=== PATIENT | male | born 1990 | race African-American/Black ===

== ENCOUNTER 2017-09-11 10:44 | Emergency (ER) | payer SELFPAY ==
[~2017-09-11] VITALS: Ht 177.8 cm; Wt 116.0 kg
[2017-09-11 11:30] VITALS: BP 137/88
[2017-09-11] MEDS ORDERED: IBUPROFEN 600MG TABLET PO ONE (11:30)
== END 2017-09-11 15:49 | disposition left against medical advice (07) ==
LOC: ER 12:19
DX: M54.5 Low back pain (principal); M25.512 Pain in left shoulder; J45.909 Unspecified asthma, uncomplicated; F12.10 Cannabis abuse, uncomplicated; V49.3XXA Car occupant (driver) (passenger) injured in unspecified nontraffic accident, initial encounter; Y93.89 Activity, other specified; Y92.89 Other specified places as the place of occurrence of the external cause; Y99.8 Other external cause status
CPT/HCPCS: 99281; 99282

== ENCOUNTER 2017-11-12 07:02 | Emergency (ER) | payer SELFPAY ==
[~2017-11-12] VITALS: Ht 180.3 cm; Wt 104.0 kg
[2017-11-12] MEDS ORDERED: TETANUS, DIPHTHERIA, PERTUSSIS VAC/PF 0.5ML (>7YR OLD) IM ONE (07:30)
[2017-11-12] MEDS ORDERED: SODIUM CHLORIDE 0.9% 1,000 ML IV ONE (07:30)
[2017-11-12] MEDS ORDERED: LIDOCAINE HCL 1% 20ML VIAL (Pyxis) INJ INFIL ONE (07:30)
[2017-11-12] MEDS ORDERED: ONDANSETRON HCL 4MG/2ML VIAL IV ONE (07:30)
[2017-11-12] MEDS ORDERED: LIDOCAINE HCL/PF 1% 10 MG/ML 30ML VIAL ONE (08:03)
[2017-11-12] MEDS ORDERED: BACITRACIN ZINC OINT UDPKT TOP ONE (10:00)
[2017-11-12 10:16] VITALS: BP 148/70
== END 2017-11-12 10:16 | disposition home or self-care (01) ==
LOC: ER 08:01
DX: S06.0X0A Concussion without loss of consciousness, initial encounter (principal); S01.411A Laceration without foreign body of right cheek and temporomandibular area, initial encounter; F12.10 Cannabis abuse, uncomplicated; Y08.89XA Assault by other specified means, initial encounter; Y93.89 Activity, other specified; Y92.89 Other specified places as the place of occurrence of the external cause; Y99.8 Other external cause status
CPT/HCPCS: 12011; 70450; 70486; 72125; 90471; 90715; 96361; 96374; 99285; J2405; J3490; J7030; Z7610; 99284

== ENCOUNTER 2017-11-17 21:00 | Emergency (ER) | payer SELFPAY ==
[~2017-11-17] VITALS: Ht 177.8 cm; Wt 115.0 kg
[2017-11-18 00:20] VITALS: BP 144/91
== END 2017-11-18 00:20 | disposition home or self-care (01) ==
LOC: ER 21:00
DX: Z48.02 Encounter for removal of sutures (principal)
CPT/HCPCS: 99281; Z7610

== ENCOUNTER 2020-09-01 20:02 | Emergency (ER) | payer MEDICAID ==
[~2020-09-01] VITALS: Ht 177.8 cm; Wt 100.0 kg
[2020-09-01] MEDS ORDERED: ACETAMINOPHEN 325MG TABLET PO STA (21:07)
[2020-09-01] MEDS ORDERED: IBUPROFEN 600MG TABLET PO STA (21:07)
[2020-09-01 21:23] LABS: BASOPHILS % 0.9 % (0.0-2.0); HEMOGLOBIN. 13.5 g/dL (14.0-18.0); LYMPHOCYTES % 39.8 % (20.0-50.0); MEAN CORPUSCULAR HEMOGLOBIN 29.2 pg (28.0-32.0); MEAN CORPUSCULAR VOLUME 84.7 fL (80.0-94.0); MEAN PLATELET VOLUME 10.2 fl (7.4-10.4); MONOCYTES % 8.7 % (2.0-8.0); NEUTROPHILS % 46.6 % (40.0-76.0); PLATELET 178 x1000/uL (130-400); RED CELL DISTRIBUTION WIDTH 14.6 % (11.6-14.6)
[2020-09-01 21:25] LABS: CHLORIDE 105 mEq/L (98-107)
[2020-09-01] MEDS ORDERED: POTASSIUM CHLORIDE 20MEQ TABLET SR PO ONE (21:45)
[2020-09-01 22:24] VITALS: BP 144/73
== END 2020-09-01 22:25 | disposition home or self-care (01) ==
LOC: ER 20:02
DX: R07.89 Other chest pain (principal); F12.10 Cannabis abuse, uncomplicated; J45.909 Unspecified asthma, uncomplicated; Z98.890 Other specified postprocedural states
CPT/HCPCS: 36415; 71045; 80053; 84484; 85025; 93005; 99285; Z7610

== ENCOUNTER 2021-04-29 14:13 | Emergency (ER) | payer MEDICAID ==
[~2021-04-29] VITALS: Ht 177.8 cm; Wt 113.0 kg
[2021-04-29 14:30] VITALS: BP 130/94
[2021-04-30] MEDS ORDERED: TOPUD MT (17:58)
[2021-04-30] MEDS ORDERED: IBUP-2028 MT (17:58)
== END 2021-04-29 17:01 | disposition left against medical advice (07) ==
LOC: ER 14:13
DX: R42 Dizziness and giddiness (principal); Z53.21 Procedure and treatment not carried out due to patient leaving prior to being seen by health care provider
CPT/HCPCS: 82962

== ENCOUNTER 2021-04-30 15:34 | Emergency (ER) | payer MEDICAID ==
[~2021-04-30] VITALS: Ht 177.8 cm; Wt 105.0 kg
[2021-04-30] MEDS ORDERED: IBUPROFEN 400MG TABLET PO ONE (17:00)
[2021-04-30] MEDS ORDERED: ACETAMINOPHEN 325MG TABLET PO ONE (17:00)
[2021-04-30 17:49] VITALS: BP 152/113
[2021-04-30] MEDS ORDERED: TOPUD MT (17:58)
[2021-04-30] MEDS ORDERED: IBUP-2028 MT (17:58)
== END 2021-04-30 18:56 | disposition home or self-care (01) ==
LOC: ER 15:34
DX: B34.9 Viral infection, unspecified (principal); Z20.822 Contact with and (suspected) exposure to COVID-19; Z71.89 Other specified counseling; J45.909 Unspecified asthma, uncomplicated
CPT/HCPCS: 87804; 99283; C9803; U0003; U0005